=== PATIENT | female | born 1965 | race Caucasian/White ===

== ENCOUNTER 2017-07-07 00:16 | Day surgery (SDC) | payer BC ==
[~2017-07-07 00:16] MED LIST: Aldactone100 MG PO; Antivert25 MG PO; Ativan1 MG PO; Cinnamon500 MG; DIVA500ER; DULO60; FISH1000 PO; HYDACE25S PR; HYDACE5 PO; HYDCHL12.5 PO; LEVSOD175; LITH450ER; LOSHYD PO; META800 PO; METO50 PO
[2017-07-07] MEDS ORDERED: BUPR75 PO (08:53)
[2017-07-07] MEDS ORDERED: COLE5P PO (08:57)
[2018-01-05] MEDS ORDERED: LEVSOD150 PO (15:12)
[2018-01-05] MEDS ORDERED: ASPI325 PO (15:12)
[2018-01-05] MEDS ORDERED: LORA.5 PO (15:13)
[2018-01-05] MEDS ORDERED: NEBI5 PO (15:14)
[2018-01-05] MEDS ORDERED: NEBI5 (15:14)
[2018-01-05] MEDS ORDERED: PANT40 PO (15:14)
[2018-01-05] MEDS ORDERED: ATOR40TA PO (15:14)
== END 2017-07-07 09:04 | disposition home or self-care (01) ==
LOC: ATC 00:16
DX: E27.0 Other adrenocortical overactivity (principal)
CPT/HCPCS: 80400; 82533; 96372; J0834

== ENCOUNTER 2018-01-08 08:01 | Day surgery (SDC) | payer BC ==
[~2018-01-08] VITALS: Ht 175.3 cm; Wt 110.0 kg
[~2018-01-08 08:01] MED LIST changes: +ASPI325 PO; +ATOR40TA PO; +BUPR75 PO; +COLE5P PO; +LEVSOD150 PO; +LORA.5 PO; +NEBI5; +NEBI5 PO; +PANT40 PO
== END 2018-01-08 13:00 | disposition home or self-care (01) ==
LOC: MHTC 08:01
PROC: 4A023N7 Measurement of Cardiac Sampling and Pressure, Left Heart, Percutaneous Approach (ICD-10-PCS; principal; 2018-01-08)
PROC: B211YZZ Fluoroscopy of Multiple Coronary Arteries using Other Contrast (ICD-10-PCS; principal; 2018-01-08)
DX: R07.9 Chest pain, unspecified (principal); R94.39 Abnormal result of other cardiovascular function study; E66.9 Obesity, unspecified; Z87.891 Personal history of nicotine dependence; E78.00 Pure hypercholesterolemia, unspecified; I10 Essential (primary) hypertension; E03.9 Hypothyroidism, unspecified
CPT/HCPCS: 93458; 99152; 99153; C1769; C1894; J1644; J2250; J3010; J7030; Q9967